=== PATIENT | female | born 1960 | race Caucasian/White ===

== ENCOUNTER 2023-02-02 09:38 | Outpatient (OUT) | payer SELFPAY ==
--- NOTE | 2023-02-02 09:28 | XR_ITS ---
The [address] [address] Patient Name: ROSLYN MORTON MRN: [id number] date: 1960 Sex: F Assigned Patient Location: [facility] Current Patient Location: [facility] Accession/Order Number: [id number] Exam Date: 02/02/2023 09:28 Report Date: 02/02/2023 09:47 At the request of: ZAKIYA CHANDRA Procedure: XR ankle LT min 3V PROCEDURE: XR ankle LT min 3V HISTORY: LEFT ANKLE PAIN ; follow-up left ankle fracture COMPARISON: XR ankle left 11/03/2022 FINDINGS: BONES:No fracture, acute abnormality, or significant arthropathy. SOFT TISSUES:No visible soft tissue swelling. EFFUSION:None visible. OTHER: Negative. IMPRESSION: 1. Complete osseous healing of previously seen lateral malleolus fracture. Normal alignment is maintained. Electronically authenticated by: EFRAIN XIAO Date: 02/02/2023 09:47
== END 2023-02-02 09:39 ==
LOC: RAD 09:38
PROVIDERS: PCP Physician Assistant; Visit Provider Physician Assistant
DX: S82.832D Other fracture of upper and lower end of left fibula, subsequent encounter for closed fracture with routine healing (principal)
CPT/HCPCS: 73610